=== PATIENT | female | born 1940 | race Caucasian/White ===

== ENCOUNTER 2024-07-30 09:44 | Outpatient (CLI) | payer MEDICARE, OTHER | END 2024-07-30 09:45 | disposition home or self-care (01) | LOC: RAD 09:44 | PROVIDERS: ATTEND Internal Medicine | DX: R06.00 Dyspnea, unspecified (principal); R91.8 Other nonspecific abnormal finding of lung field | CPT/HCPCS: 71046 ==

== ENCOUNTER 2024-09-01 11:30 | Outpatient (CLI) | payer MEDICARE, OTHER | END 2024-09-01 11:31 | disposition home or self-care (01) | LOC: SCSRAD 11:30 | PROVIDERS: ATTEND Family Medicine | DX: R05.9 Cough, unspecified (principal); R91.8 Other nonspecific abnormal finding of lung field | CPT/HCPCS: 71046 ==

== ENCOUNTER 2024-09-30 09:11 | Outpatient (CLI) | payer MEDICARE, OTHER | END 2024-09-30 09:12 | disposition home or self-care (01) | LOC: SCSRAD 09:11 | PROVIDERS: ATTEND Family Medicine | DX: R05.9 Cough, unspecified (principal); I51.7 Cardiomegaly; J98.4 Other disorders of lung; J90 Pleural effusion, not elsewhere classified; R91.8 Other nonspecific abnormal finding of lung field; I25.10 Atherosclerotic heart disease of native coronary artery without angina pectoris; I50.40 Unspecified combined systolic (congestive) and diastolic (congestive) heart failure; E72.11 Homocystinuria; R60.9 Edema, unspecified | CPT/HCPCS: 36415; 71046; 80053; 80061; 83090; 83540; 83550; 83880; 85025; 86141 ==

== ENCOUNTER 2024-10-27 08:34 | Outpatient (CLI) | payer MEDICARE, OTHER ==
[2024-10-27] MEDS ORDERED: Iopamidol 370 76% 100 ML VIAL ONE (09:52)
== END 2024-10-27 08:35 | disposition home or self-care (01) ==
LOC: CT 08:34
PROVIDERS: ATTEND Family Medicine
DX: R91.8 Other nonspecific abnormal finding of lung field (principal); J98.4 Other disorders of lung; J47.9 Bronchiectasis, uncomplicated; J90 Pleural effusion, not elsewhere classified; I51.7 Cardiomegaly
CPT/HCPCS: 71260

== ENCOUNTER 2025-08-04 09:51 | Outpatient (CLI) | payer MEDICARE, OTHER | END 2025-08-04 09:52 | disposition home or self-care (01) | LOC: BICCT 09:51 | PROVIDERS: ATTEND Internal Medicine Infectious Disease | DX: A31.0 Pulmonary mycobacterial infection (principal); J90 Pleural effusion, not elsewhere classified; R91.8 Other nonspecific abnormal finding of lung field | CPT/HCPCS: 71250 ==